=== PATIENT | female | born 1985 | race Two or more races ===

== ENCOUNTER 2019-11-21 19:02 | Inpatient (IN) | payer BC ==
[~2019-11-21] VITALS: Ht 149.9 cm; Wt 49.9 kg
[2019-11-21] MEDS ORDERED: ZOFRAN ODT8 MG ORAL (19:24)
[2019-11-21] MEDS ORDERED: AMOX TR-K CLV1 EAC2 ORAL (19:24)
[2019-11-21] MEDS ORDERED: TRAMADOL HCL50 MG ORAL (19:24)
[2019-11-21] MEDS ORDERED: OXYCODONE HCL5 M2 ORAL (19:25)
--- NOTE | 2019-11-21 19:25 | NUR ---
ED Nurse Note: Recieved pt from surgery center, pt had removal of uterine fibroids and here for uncontrolled post-op pain, pt states pain at 10/10, tp took oral oxycodone and states made her feel worse, pt denies cp, sob, or any other complaints or discomforts, pt is ambualtory, has patent dorado and saline lock to left ac area, assessed and intact and patent, pt immeidately palced on cardiac monitoring, will resume care as ordered and closely monitor.
[2019-11-21] MEDS ORDERED: Morphine Sulfate 4mg/ml Inj (IV USE ONLY) IVP ONE (19:30)
--- NOTE | 2019-11-21 19:31 | Emergency Room Report ---
History of Present Illness General Chief Complaint: Lower Back Pain or Injury Source: Patient Present Illness HPI Disclaimer: Please note that this report is being documented using [employer] technology. This can lead to erroneous entry secondary to incorrect interpretation by the dictating instrument. HPI: 34-year-old female history of uterine fibroids presents with postoperative pain. She had a uterine artery ablation this morning with Dr. Quinn. After surgery patient had persistent pain and was sent to the ER for pain control. She denies any fevers nausea or vomiting. Eyes any other medical history. Pain is in the lower abdomen radiating to the back approximately 8 out of 10. PMH: Uterine fibroids PSH: Reviewed Social Hx: Denies smoking drinking or illicit drug use Allergies: Coded Allergies: No Known Allergies (Unverified , 11/21/19) COVID-19 Screening Contact w/high risk pt: No Recent Travel to affected area: No Experienced COVID-19 symptoms?: No COVID-19 Testing performed BATTERY LOADER: No - tested on 11/09 COVID-19 Screening: Negative COVID-19 COVID-19 Testing Source: pre op Patient History Last Menstrual Period: 10/31/19 Now: No : 0 Para: 0 Reviewed Nursing Documentation: PMH: Agreed; PSxH: Agreed Nursing Documentation-PMH Past Medical History: No Stated History Review of Systems All Other Systems: negative except mentioned in HPI Physical Exam Vital Signs Date Time Temp Pulse Resp B/P (MAP) Pulse Ox O2 Delivery O2 Flow Rate FiO2 11/21/19 19:07 99.1 53 20 101/63 (76) 100 Room Air Sp02 EP Interpretation: reviewed, normal General Appearance: well appearing, no apparent distress Head: normocephalic, atraumatic Eyes: bilateral eye PERRL, bilateral eye EOMI ENT: hearing grossly normal, moist mucus membranes Neck: full range of motion, supple Respiratory: lungs clear, normal breath sounds, no rhonchi, no respiratory distress, no retraction, no wheezing Cardiovascular #1: normal peripheral pulses, regular rate, rhythm, no murmur Gastrointestinal: soft, non-distended, no guarding, tenderness - Lower abdominal tenderness without rebound or guarding Neurologic: alert, oriented x3, no focal defects Skin: normal color, warm/dry Medical Decision Making Diagnostic Impression: Primary Impression: Postoperative pain Additional Impression: Uterine fibroid ER Course MDM: Differential included postoperative pain, uterine fibroids, less likely infectious process Clinical course-IV already established at surgical center, IV fluids started, pain control given, basic laboratory studies are sent, will arrange for patient to be admitted to the medical floor for pain control and observation. On reevaluation: Pain controlled patient sleeping comfortably Plan-patient will be placed on observation on the medical floor Last Vital Signs Date Time Temp Pulse Resp B/P (MAP) Pulse Ox O2 Delivery O2 Flow Rate FiO2 11/21/19 19:07 99.1 53 20 101/63 (76) 100 Room Air Disposition: ADMITTED INPATIENT Condition: Serious Referrals: NOT CHOSEN IPA/,REFERRING (PCP) Foster Molina M.D. Nov 21, 2019 19:31
[2019-11-21 19:45] VITALS: BP 113/70
[2019-11-21] MEDS ORDERED: fentaNYL 100 mcg/2 mL IV ONE (20:30)
--- NOTE | 2019-11-21 21:00 | NUR ---
ED Nurse Note: Pt resting in bed, appears to be sleeping, arouses easily to verbal stimuli, when awakened pt continues to c/o severe pain and asking for meds, aware, new order recieved, will re-medicate as ordered and closely monitor, pt waiting for room for admission. V/S stable, no SOB or labored breathing, will also prepare for hospital admission.
[2019-11-21 22:00] VITALS: BP 108/66
--- NOTE | 2019-11-21 22:15 | NUR ---
ED Nurse Note: Pt has hospital room for admission, pt is awake, alert and oriented x 4, resting quietly but when asked states remains in severe pain, pt appears drowsy with eyes low, does appear to be sedated, report called to floor nurse Heather pt belonging list completed, med rec also, IV site patent, pt post-op site with no bleeding noted, all pulses are present, dorado to gravity with clear urine, pt being taken to floor via gurney with [facility], nad noted during pt transport.
[2019-11-21 22:26] LABS: APPEARANCE,URINE CLEAR; BILIRUBIN, URINE NEGATIVE (NEGATIVE); COLOR,URINE PALE YELLOW; GLUCOSE, URINE (UA) NEGATIVE (NEGATIVE); KETONES,URINE 4+ (NEGATIVE); LEUKOCYTE ESTERASE ,URINE NEGATIVE (NEGATIVE); NITRITE,URINE NEGATIVE (NEGATIVE); PH,URINE 7 (4.5-8.0); PROTEIN,URINE NEGATIVE (NEGATIVE); UROBILINOGEN,URINE NORMAL MG/DL (0.0-1.0)
[2019-11-21 22:28] LABS: HEMATOCRIT 34.9 % (37.0-47.0); HEMOGLOBIN 10.9 G/DL (12.0-16.0); MEAN CORPUSCULAR VOLUME 86 FL (80-99); PLATELET COUNT 251 K/UL (150-450); RED BLOOD COUNT 4.06 M/UL (4.20-5.40); RED CELL DISTRIBUTION WIDTH 13.6 % (11.6-14.8); WHITE BLOOD COUNT 10.2 K/UL (4.8-10.8)
[2019-11-21 22:30] LABS: BASOPHILS % (AUTO) 0.3 % (0.0-2.0); LYMPHOCYTES % (AUTO) 7.9 % (20.0-45.0); MONOCYTES % (AUTO) 1.4 % (1.0-10.0); NEUTROPHILS % (AUTO) 90.4 % (45.0-75.0)
[2019-11-21 22:50] LABS: ANION GAP 11 mmol/L (5-15); BLOOD UREA NITROGEN 5 mg/dL (7-18); CALCIUM 7.4 MG/DL (8.5-10.1); CARBON DIOXIDE 22 MMOL/L (21-32); CHLORIDE 104 MMOL/L (98-107); CREATININE 0.9 MG/DL (0.55-1.30); SODIUM 136 MMOL/L (136-145)
[2019-11-21 22:55] LABS: ALANINE AMINOTRANSFERASE 14 U/L (12-78); ALBUMIN 2.9 G/DL (3.4-5.0); ALBUMIN/GLOBULIN RATIO 0.9 (1.0-2.7); ALKALINE PHOSPHATASE 42 U/L (46-116); ASPARTATE AMINO TRANSFERASE 14 U/L (15-37); BILIRUBIN,TOTAL 0.6 MG/DL (0.2-1.0)
[2019-11-21] MEDS ORDERED: Potassium Chloride 20 MEQ in Dextrose 5%/Lactated Ringer's 1,000 ML IV SCH (23:15)
[2019-11-21] MEDS: Potassium Chloride 20 MEQ in Dextrose 5%/Lactated Ringer's 1,000 ML IV SCH (23:30)
[2019-11-22] VITALS: BP 98/77
[2019-11-22] MEDS ORDERED: Dextrose 5%/Lactated Ringer's 1,000 ML IV SCH (00:30)
[2019-11-22] MEDS ORDERED: LR 1000ml 1,000 ML ONE (00:30)
--- NOTE | 2019-11-22 00:33 | NUR ---
NURSES NOTE: PT received from ER at approx 2200. Pt is A/OX4, answers all questions appropriately. VS within normal limits. No outward s/s of distress noted. Breathing is even and unlabored on RA. L AC IV in tact, hep locked. Mustafa catheter in place, draining to gravity. Urine light yellow in color. No sediment noted. Head to toe assessment performed. Skin is clear and in tact. Dressing, R groin clean and dry. Pt will continue to be monitored.
[2019-11-22 04:00] VITALS: BP 100/57
[2019-11-22] MEDS ORDERED: ceFAZolin sod 1 GM in D5W 55 ML IVPB SCH (06:00)
--- NOTE | 2019-11-22 07:00 | NUR ---
NURSE NOTES: Received report from Domenica RN, rounds made pt awake a/ox4, breaths regular unlabored at RA, c/o pain 07/22, IVF on LT AC 22G patent asymptomatic, Mustafa catheter intact and anchored, dressing on R groin clean intact, bed in low locked position side rails up X 2, call light with in reach, will continue with plan of care
[2019-11-22 07:05] LABS: ALANINE AMINOTRANSFERASE 14 U/L (12-78); ALBUMIN/GLOBULIN RATIO 0.9 (1.0-2.7); ALKALINE PHOSPHATASE 41 U/L (46-116); ANION GAP 8 mmol/L (5-15); ASPARTATE AMINO TRANSFERASE 14 U/L (15-37); BILIRUBIN,TOTAL 0.7 MG/DL (0.2-1.0); BLOOD UREA NITROGEN 5 mg/dL (7-18); CALCIUM 8.1 MG/DL (8.5-10.1); CARBON DIOXIDE 24 MMOL/L (21-32); CHLORIDE 105 MMOL/L (98-107); CREATININE 0.9 MG/DL (0.55-1.30); SODIUM 137 MMOL/L (136-145)
[2019-11-22 07:10] LABS: BASOPHILS % (AUTO) 0.4 % (0.0-2.0); EOSINOPHILS % (AUTO) 0.1 % (0.0-3.0); HEMATOCRIT 35.4 % (37.0-47.0); HEMOGLOBIN 11.5 G/DL (12.0-16.0); MEAN CORPUSCULAR VOLUME 84 FL (80-99); MONOCYTES % (AUTO) 5.9 % (1.0-10.0); NEUTROPHILS % (AUTO) 81.7 % (45.0-75.0); PLATELET COUNT 239 K/UL (150-450); RED BLOOD COUNT 4.24 M/UL (4.20-5.40); RED CELL DISTRIBUTION WIDTH 11.7 % (11.6-14.8)
--- NOTE | 2019-11-22 07:30 | NUR ---
NURSES NOTE: During AM rounds, a red rash around pt's collar bone, across chest, bilateral breast spanning down to her top of abdomen was noted. Pt states she is experiencing pruritus. Oncoming nurse aware and will f/u with orders. Upon admission, a call was placed to Dr. Andrea for more admission orders; however, the request was declined and told pt will be seen in AM.
--- NOTE | 2019-11-22 07:35 | NUR ---
HAND OFF: Report given to VAUGHN More.
--- NOTE | 2019-11-22 07:40 | NUR ---
NURSE NOTES: pt complained of a redness around the neck and arms , on assessment pt has redness all around upper chest and around bilateral breast, and Bilateral upper extremities, notified Md, whom advise me to call back at 0900 am
--- NOTE | 2019-11-22 07:42 | History and Physical ---
Nelsy Mulligan CREW BOAT OPERATOR 11/22/19 0742: History of Present Illness General Date patient seen: Nov 22, 2019 Time patient seen: 06:30 Reason for Hospitalization: post op ab pain Present Illness HPI 34 years old female with past medical history of uterine fibroids, status post uterine artery embolization, no significant other medical history, presented with persistent abdominal pain, lower radiating to the back and rated as 8 out of 10 on a scale 1-10. Patient was sent for pain control. She denied fever or chills. She denied nausea and vomiting. Vital signs revealed bradycardia with heart rate in 50. No fevers. Laboratory work-up revealed no leukocytosis, hemoglobin 10.9, hematocrit 34.9 , platelet count 251. Stable electrolytes. Glucose 121. Stable LFT and lipase. Urinalysis revealed no evidence of urinary tract infection, +4 ketones. In emergency department patient received analgesic, antiemetic, started on IV fluids and admitted for further management. This am patient has mild leukocytosis, no fevers. She complains of pruritic rash, started last night in ED. Pain overall better controlled. Allergies: Coded Allergies: No Known Allergies (Unverified , 11/21/19) COVID-19 Screening Contact w/high risk pt: No Recent Travel to affected area: No Experienced COVID-19 symptoms?: No Medication History Scheduled Amoxicillin/Potassium Clav 875-125 Mg Tab* (Amox Tr-K Clv 875-125 Mg Tab*), 1 TAB ORAL EVERY 12 HOURS, (Reported) Scheduled PRN Ondansetron Odt* (Zofran Odt*), 4 MG ORAL Q6H PRN for Nausea & Vomiting, ( Reported) Oxycodone Hcl* (Oxycodone Hcl*), 5 MG ORAL Q4H PRN for For Pain, (Reported) Tramadol Hcl* (Ultram*), 50 MG ORAL Q4HR PRN for For Pain, (Reported) Patient History Healthcare decision maker Resuscitation status Advanced Directive on File Review of Systems Eye: Reports: no symptoms ENT: Reports: no symptoms Respiratory: Reports: no symptoms Cardiovascular: Reports: no symptoms Gastrointestinal: Reports: no symptoms Genitourinary: Reports: see HPI Musculoskeletal: Reports: no symptoms Skin: Reports: see HPI, rash Psychiatric: Reports: no symptoms Neurological: Reports: no symptoms Endocrine: Reports: no symptoms Hematologic/Lymphatic: Reports: no symptoms Physical Exam General Appearance: WD/WN, no apparent distress Lines, tubes and drains: peripheral HEENT: normocephalic, atraumatic, anicteric, mucous membranes moist, PERRL Neck: non-tender, normal alignment, supple Respiratory/Chest: lungs clear, normal breath sounds, no respiratory distress, no accessory muscle use Cardiovascular/Chest: normal rate Abdomen: normal bowel sounds, soft - mild tenderness lwoer abdomen, Extremities: normal range of motion, non-tender, no calf tenderness, normal capillary refill, no edema Neurologic: alert, oriented x 3, responsive Musculoskeletal: normal muscle bulk Last 24 Hour Vital Signs Date Time Temp Pulse Resp B/P (MAP) Pulse Ox O2 Delivery O2 Flow Rate FiO2 11/22/19 04:00 98.7 98 17 100/57 (71) 98 11/22/19 00:59 Room Air 11/22/19 00:00 98.2 77 16 98/77 (84) 97 11/21/19 22:00 98.8 72 16 108/66 (80) 100 11/21/19 22:00 99.1 72 16 108/66 100 Room Air 11/21/19 20:08 99.1 11/21/19 20:08 99.1 11/21/19 19:50 99.1 90 16 113/70 100 Room Air 11/21/19 19:45 99.1 90 16 113/70 100 Room Air 11/21/19 19:07 99.1 53 20 101/63 (76) 100 Room Air Intake and Output 11/21/19 11/22/19 19:00 07:00 Intake Total 150 ml Output Total 2400 ml Balance -2250 ml Intake Oral 150 ml Output Urine Total 2400 ml # Bowel Movements 1 Laboratory Tests Test 11/21/19 22:00 11/21/19 22:05 11/22/19 05:05 Urine Color Pale yellow Urine Appearance Clear Urine pH 7 (4.5-8.0) Urine Specific [place] 1.010 (1.005-1.035) Urine Protein Negative (NEGATIVE) Urine Glucose (UA) Negative (NEGATIVE) Urine Ketones 4+ (NEGATIVE) H Urine Blood 3+ (NEGATIVE) H Urine Nitrite Negative (NEGATIVE) Urine Bilirubin Negative (NEGATIVE) Urine Urobilinogen Normal MG/DL (0.0-1.0) Urine Leukocyte Esterase Negative (NEGATIVE) Urine RBC 5-10 /HPF (0 - 2) H Urine WBC 0-2 /HPF (0 - 2) Urine Squamous Epithelial Cells Occasional /LPF Urine Bacteria None /HPF (NONE) Urine HCG, Qualitative Negative (NEGATIVE) White Blood Count 10.2 K/UL (4.8-10.8) 12.0 K/UL (4.8-10.8) H Red Blood Count 4.06 M/UL (4.20-5.40) L 4.24 M/UL (4.20-5.40) Hemoglobin 10.9 G/DL (12.0-16.0) L 11.5 G/DL (12.0-16.0) L Hematocrit 34.9 % (37.0-47.0) L 35.4 % (37.0-47.0) L Mean Corpuscular Volume 86 FL (80-99) 84 FL (80-99) Mean Corpuscular Hemoglobin 26.8 PG (27.0-31.0) L 27.2 PG (27.0-31.0) Mean Corpuscular Hemoglobin Concent 31.1 G/DL (32.0-36.0) L 32.5 G/DL (32.0-36.0) Red Cell Distribution Width 13.6 % (11.6-14.8) 11.7 % (11.6-14.8) Platelet Count 251 K/UL (150-450) 239 K/UL (150-450) Mean Platelet Volume 7.6 FL (6.5-10.1) 8.0 FL (6.5-10.1) Neutrophils (%) (Auto) 90.4 % (45.0-75.0) H 81.7 % (45.0-75.0) H Lymphocytes (%) (Auto) 7.9 % (20.0-45.0) L 12.0 % (20.0-45.0) L Monocytes (%) (Auto) 1.4 % (1.0-10.0) 5.9 % (1.0-10.0) Eosinophils (%) (Auto) 0.0 % (0.0-3.0) 0.1 % (0.0-3.0) Basophils (%) (Auto) 0.3 % (0.0-2.0) 0.4 % (0.0-2.0) Sodium Level 136 MMOL/L (136-145) 137 MMOL/L (136-145) Potassium Level 4.0 MMOL/L (3.5-5.1) 4.0 MMOL/L (3.5-5.1) Chloride Level 104 MMOL/L (98-107) 105 MMOL/L (98-107) Carbon Dioxide Level 22 MMOL/L (21-32) 24 MMOL/L (21-32) Anion Gap 11 mmol/L (5-15) 8 mmol/L (5-15) Blood Urea Nitrogen 5 mg/dL (7-18) L 5 mg/dL (7-18) L Creatinine 0.9 MG/DL (0.55-1.30) 0.9 MG/DL (0.55-1.30) Estimat Glomerular Filtration Rate > 60 mL/min (>60) > 60 mL/min (>60) Glucose Level 121 MG/DL (74-106) H 157 MG/DL (74-106) H Calcium Level 7.4 MG/DL (8.5-10.1) L 8.1 MG/DL (8.5-10.1) L Total Bilirubin 0.6 MG/DL (0.2-1.0) 0.7 MG/DL (0.2-1.0) Aspartate Amino Transf (AST/SGOT) 14 U/L (15-37) L 14 U/L (15-37) L Alanine Aminotransferase (ALT/SGPT) 14 U/L (12-78) 14 U/L (12-78) Alkaline Phosphatase 42 U/L (46-116) L 41 U/L (46-116) L Total Protein 6.0 G/DL (6.4-8.2) L 6.4 G/DL (6.4-8.2) Albumin 2.9 G/DL (3.4-5.0) L 3.0 G/DL (3.4-5.0) L Globulin 3.1 g/dL 3.4 g/dL Albumin/Globulin Ratio 0.9 (1.0-2.7) L 0.9 (1.0-2.7) L Lipase 68 U/L (73-393) L Height (Feet): 4 Height (Inches): 11.00 Weight (Pounds): 110 Medications Current Medications Medications (Trade) Dose Ordered Sig/Albert Route PRN Reason Start Time Stop Time Status Last Admin Dose Admin Cefazolin Sodium 1 gm/Dextrose 55 ml @ 110 mls/hr Q8HR IVPB 11/22/19 06:00 11/29/19 05:59 11/22/19 06:13 Hydromorphone HCl (Dilaudid) 1 mg Q6H PRN IVP FOR MILD PAIN (1-3) 11/22/19 00:30 11/29/19 00:29 Hydromorphone HCl (Dilaudid) 2 mg Q2H PRN IVP SEVERE PAIN (7-10) 11/21/19 23:15 11/28/19 23:14 11/21/19 23:55 Hydromorphone HCl (Dilaudid) 2 mg Q3H PRN IVP MODERATE PAIN (4-6) 11/22/19 00:30 11/29/19 00:29 Ondansetron HCl (Zofran) 4 mg Q6H PRN IVP Nausea & Vomiting 11/21/19 23:15 12/21/19 23:14 Potassium Chloride 20 meq/ Dextrose/Lactated Ringer's 1,010 ml @ 150 mls/hr Q6H44M IV 11/21/19 23:30 12/21/19 23:29 11/21/19 23:30 Assessment/Plan Assessment/Plan: ASSESSMENT Postoperative pain s/p uterine artery embolization Uterine fibroids Leukocytosis Pruritic rash Anemia Bradycardia - asymptomatic. resolved PLAN OF CARE MS floor IVF empiric abx -Cefazolin, will dc abx due to rash -possible adverse effect pain management a/emetic prn [id number] added for pruritis monitor rash, maybe adverse effect from Dilaudid as well, if symptomatic consider change Dilaudid to Morphine monitor HH with goal to keep Hgb above 7 bowel regimen OOB and ambulate as tolerated supportive care case discussed and evaluated by supervising physician Michel Mccullough MD 11/22/19 2188: History of Present Illness General Reason for Hospitalization: post op ab pain Present Illness Allergies: Coded Allergies: No Known Allergies (Unverified , 11/21/19) Medication History Scheduled Amoxicillin/Potassium Clav 875-125 Mg Tab* (Amox Tr-K Clv 875-125 Mg Tab*), 1 TAB ORAL EVERY 12 HOURS, (Reported) Scheduled PRN Ondansetron Odt* (Zofran Odt*), 4 MG ORAL Q6H PRN for Nausea & Vomiting, ( Reported) Oxycodone Hcl* (Oxycodone Hcl*), 5 MG ORAL Q4H PRN for For Pain, (Reported) Tramadol Hcl* (Ultram*), 50 MG ORAL Q4HR PRN for For Pain, (Reported) Assessment/Plan Assessment/Plan: Patient seen and examined with CREW BOAT OPERATOR. Agree with above A&P as it reflects our joint deliberations. Nelsy Mulligan NP Nov 22, 2019 07:42 Michel Mccullough MD Nov 22, 2019 16:25
[2019-11-22 08:22] VITALS: BP 96/52
[2019-11-22] MEDS: DiphenhydrAMINE 50mg/ml Inj IVP PRN ×2 (10:15→18:07)
[2019-11-22] MEDS: HYDROmorphone 1mg/ml Carpuject IVP PRN ×2 (10:15→19:45)
--- NOTE | 2019-11-22 10:46 | General Surgery Progress Note ---
General Surgery-Progress Note Subjective Day of Surgery: november 20 Procedure Performed uterine fibroid embolization Symptoms: improved, voiding well, pain decreased Objective Last 24 Hour Vital Signs Date Time Temp Pulse Resp B/P (MAP) Pulse Ox O2 Delivery O2 Flow Rate FiO2 11/22/19 08:22 98.4 56 21 96/52 (67) 97 11/22/19 04:00 98.7 98 17 100/57 (71) 98 11/22/19 00:59 Room Air 11/22/19 00:00 98.2 77 16 98/77 (84) 97 11/21/19 22:00 98.8 72 16 108/66 (80) 100 11/21/19 22:00 99.1 72 16 108/66 100 Room Air 11/21/19 20:08 99.1 11/21/19 20:08 99.1 11/21/19 19:50 99.1 90 16 113/70 100 Room Air 11/21/19 19:45 99.1 90 16 113/70 100 Room Air 11/21/19 19:07 99.1 53 20 101/63 (76) 100 Room Air I&O Intake and Output 11/21/19 11/22/19 19:00 07:00 Intake Total 150 ml Output Total 2400 ml Balance -2250 ml Intake Oral 150 ml Output Urine Total 2400 ml # Bowel Movements 1 Dressing: dry Wound: clean Drains: none Cardiovascular: RSR Respiratory: clear Abdomen: soft, flat, tenderness, present bowel sounds Extremities: no edema, no tenderness, no cyanosis Laboratory Tests Test 11/21/19 22:00 11/21/19 22:05 11/22/19 05:05 Urine Color Pale yellow Urine Appearance Clear Urine pH 7 (4.5-8.0) Urine Specific [place] 1.010 (1.005-1.035) Urine Protein Negative (NEGATIVE) Urine Glucose (UA) Negative (NEGATIVE) Urine Ketones 4+ (NEGATIVE) H Urine Blood 3+ (NEGATIVE) H Urine Nitrite Negative (NEGATIVE) Urine Bilirubin Negative (NEGATIVE) Urine Urobilinogen Normal MG/DL (0.0-1.0) Urine Leukocyte Esterase Negative (NEGATIVE) Urine RBC 5-10 /HPF (0 - 2) H Urine WBC 0-2 /HPF (0 - 2) Urine Squamous Epithelial Cells Occasional /LPF Urine Bacteria None /HPF (NONE) Urine HCG, Qualitative Negative (NEGATIVE) White Blood Count 10.2 K/UL (4.8-10.8) 12.0 K/UL (4.8-10.8) H Red Blood Count 4.06 M/UL (4.20-5.40) L 4.24 M/UL (4.20-5.40) Hemoglobin 10.9 G/DL (12.0-16.0) L 11.5 G/DL (12.0-16.0) L Hematocrit 34.9 % (37.0-47.0) L 35.4 % (37.0-47.0) L Mean Corpuscular Volume 86 FL (80-99) 84 FL (80-99) Mean Corpuscular Hemoglobin 26.8 PG (27.0-31.0) L 27.2 PG (27.0-31.0) Mean Corpuscular Hemoglobin Concent 31.1 G/DL (32.0-36.0) L 32.5 G/DL (32.0-36.0) Red Cell Distribution Width 13.6 % (11.6-14.8) 11.7 % (11.6-14.8) Platelet Count 251 K/UL (150-450) 239 K/UL (150-450) Mean Platelet Volume 7.6 FL (6.5-10.1) 8.0 FL (6.5-10.1) Neutrophils (%) (Auto) 90.4 % (45.0-75.0) H 81.7 % (45.0-75.0) H Lymphocytes (%) (Auto) 7.9 % (20.0-45.0) L 12.0 % (20.0-45.0) L Monocytes (%) (Auto) 1.4 % (1.0-10.0) 5.9 % (1.0-10.0) Eosinophils (%) (Auto) 0.0 % (0.0-3.0) 0.1 % (0.0-3.0) Basophils (%) (Auto) 0.3 % (0.0-2.0) 0.4 % (0.0-2.0) Sodium Level 136 MMOL/L (136-145) 137 MMOL/L (136-145) Potassium Level 4.0 MMOL/L (3.5-5.1) 4.0 MMOL/L (3.5-5.1) Chloride Level 104 MMOL/L (98-107) 105 MMOL/L (98-107) Carbon Dioxide Level 22 MMOL/L (21-32) 24 MMOL/L (21-32) Anion Gap 11 mmol/L (5-15) 8 mmol/L (5-15) Blood Urea Nitrogen 5 mg/dL (7-18) L 5 mg/dL (7-18) L Creatinine 0.9 MG/DL (0.55-1.30) 0.9 MG/DL (0.55-1.30) Estimat Glomerular Filtration Rate > 60 mL/min (>60) > 60 mL/min (>60) Glucose Level 121 MG/DL (74-106) H 157 MG/DL (74-106) H Calcium Level 7.4 MG/DL (8.5-10.1) L 8.1 MG/DL (8.5-10.1) L Total Bilirubin 0.6 MG/DL (0.2-1.0) 0.7 MG/DL (0.2-1.0) Aspartate Amino Transf (AST/SGOT) 14 U/L (15-37) L 14 U/L (15-37) L Alanine Aminotransferase (ALT/SGPT) 14 U/L (12-78) 14 U/L (12-78) Alkaline Phosphatase 42 U/L (46-116) L 41 U/L (46-116) L Total Protein 6.0 G/DL (6.4-8.2) L 6.4 G/DL (6.4-8.2) Albumin 2.9 G/DL (3.4-5.0) L 3.0 G/DL (3.4-5.0) L Globulin 3.1 g/dL 3.4 g/dL Albumin/Globulin Ratio 0.9 (1.0-2.7) L 0.9 (1.0-2.7) L Lipase 68 U/L (73-393) L Additional Comments post embolization pain, now under control Plan Additional Comments continue current management Dalton Quinn MD Nov 22, 2019 10:46
[2019-11-22] MEDS: Potassium Chloride 20 MEQ in Dextrose 5%/Lactated Ringer's 1,000 ML IV SCH ×4 (11:41→22:12)
[2019-11-22 12:00] VITALS: BP 94/63
--- NOTE | 2019-11-22 12:02 | NUR ---
CASE MANAGEMENT: INITIAL REVIEW 34YR OLD FEMALE WHEELCHAIRED IN TO ER FROM HOME CC: SHARP FLANK PAIN; UTERINE ARTERY EMBOLIZATION SI:POST OPERATIVE PAIN . S/P UTERINE FIBROID EMBOLIZATION 99.1 53 20 101/63 100% ON RA BG 121 CA+ 7.4 ALKP 42 ALBUMIN 2.9 IS:IVF NS BOLUS X1 IV MORPHINE SULFATE X1 \: 3E MED SURG UNIT DCP: HOME WHEN STABLE PLAN: CONTROL PAIN CASE MANAGEMENT: REVIEW 11/22/19 SI:POST OPERATIVE PAIN . S/P UTERINE FIBROID EMBOLIZATION 98.4 56 21 96/52 97% ON RA BG 121 CA+ 7.4 ALKP 42 ALBUMIN 2.9 IS:IV KCL/D5/LR @150ML/HR IV DILAUDID Q6HR/PRN IV BENADRYL Q3HR/PRN \: 3E MED SURG UNIT DCP: HOME WHEN STABLE PLAN: CONTROL PAIN START ON IV VENOFER DC BESS
[2019-11-22] MEDS ORDERED: Iron Sucrose 200 MG in NS 110 ML IV ONE (14:00)
--- NOTE | 2019-11-22 14:33 | NUR ---
*-* INSURANCE *-* ALL CLINICALS AND REVIEWS HAVE BEEN FAXED TO: [facility] [facility] AUTH#[id number] [phone] F:[phone]
[2019-11-22] MEDS ORDERED: Bisacodyl EC 5mg tab ORAL PRN (16:30)
[2019-11-22 16:32] VITALS: BP 114/70
[2019-11-22] MEDS: Docusate 100mg cap ORAL SCH (18:06)
[2019-11-22 20:00] VITALS: BP 99/61
--- NOTE | 2019-11-22 20:15 | NUR ---
NURSES NOTE: Pt in bed, complains of pain 4/10 in lower abdominal area. 1mg Dilaudid administered IV push. Effective, tolerated well. No outward s/s of distress noted. Breathing is even on RA. Mustafa removed. IV RAC in tact, no s/s of infection. All due meds will be given. Bed at lowest level, call light within reach. Pt will be monitored.
--- NOTE | 2019-11-22 20:21 | NUR ---
HAND-OFF: Report given to Heather MENDES , pt stable.
[2019-11-23] VITALS: BP 91/58
[2019-11-23 04:00] VITALS: BP 99/76
[2019-11-23 05:59] LABS: BASOPHILS % (AUTO) 0.7 % (0.0-2.0); EOSINOPHILS % (AUTO) 3.7 % (0.0-3.0); HEMATOCRIT 37.8 % (37.0-47.0); HEMOGLOBIN 11.9 G/DL (12.0-16.0); LYMPHOCYTES % (AUTO) 13.1 % (20.0-45.0); MEAN CORPUSCULAR VOLUME 85 FL (80-99); MONOCYTES % (AUTO) 5.4 % (1.0-10.0); NEUTROPHILS % (AUTO) 77.1 % (45.0-75.0); PLATELET COUNT 226 K/UL (150-450); RED BLOOD COUNT 4.48 M/UL (4.20-5.40); RED CELL DISTRIBUTION WIDTH 11.9 % (11.6-14.8); WHITE BLOOD COUNT 10.4 K/UL (4.8-10.8)
[2019-11-23 06:11] LABS: ALANINE AMINOTRANSFERASE 12 U/L (12-78); ALBUMIN/GLOBULIN RATIO 0.9 (1.0-2.7); ALKALINE PHOSPHATASE 40 U/L (46-116); ANION GAP 7 mmol/L (5-15); ASPARTATE AMINO TRANSFERASE 15 U/L (15-37); BILIRUBIN,TOTAL 0.6 MG/DL (0.2-1.0); BLOOD UREA NITROGEN 3 mg/dL (7-18); CALCIUM 8.1 MG/DL (8.5-10.1); CARBON DIOXIDE 26 MMOL/L (21-32); CHLORIDE 103 MMOL/L (98-107); CREATININE 0.9 MG/DL (0.55-1.30); POTASSIUM 3.9 MMOL/L (3.5-5.1); SODIUM 136 MMOL/L (136-145)
[2019-11-23] MEDS: Potassium Chloride 20 MEQ in Dextrose 5%/Lactated Ringer's 1,000 ML IV SCH ×3 (06:16→22:11)
[2019-11-23] MEDS: HYDROmorphone 1mg/ml Carpuject IVP PRN (06:22)
[2019-11-23] MEDS: DiphenhydrAMINE 50mg/ml Inj IVP PRN (06:31)
--- NOTE | 2019-11-23 07:40 | NUR ---
HAND OFF: Report given to VAUGHN Austin.
--- NOTE | 2019-11-23 08:00 | NUR ---
NURSE NOTES: Received report from Domenica MENDES, rounds made pt awake a/ox4, breaths regular unlabored at RA, denies pain at this time, IVF on LT AC 22G patent asymptomatic, dressing on R groin clean intact, bed in low locked position side rails up X 2, call light with in reach, will continue with plan of care
--- NOTE | 2019-11-23 08:13 | Pulmonology Progress Note ---
Nelsy Mulligan CONSERVATION AGENT 11/23/19 0813: Subjective Allergies: Coded Allergies: No Known Allergies (Unverified , 11/21/19) Subjective Mild leukocytosis resolved Feeling better Rash now on upper back as well Objective Last 24 Hour Vital Signs Date Time Temp Pulse Resp B/P (MAP) Pulse Ox O2 Delivery O2 Flow Rate FiO2 11/23/19 04:00 99.5 72 19 99/76 (84) 94 11/23/19 00:00 99.3 63 19 91/58 (69) 99 11/22/19 21:00 Room Air 11/22/19 20:00 98.5 80 20 99/61 (74) 99 11/22/19 16:32 98.8 69 20 114/70 (85) 97 11/22/19 12:00 98.4 72 19 94/63 (73) 95 11/22/19 09:00 Room Air 11/22/19 08:22 98.4 56 21 96/52 (67) 97 Intake and Output 11/22/19 11/23/19 19:00 07:00 Intake Total 480 ml Balance 480 ml Intake Oral 480 ml # Voids 3 4 # Bowel Movements 1 Objective General Appearance: WD/WN, no apparent distress Lines, tubes and drains: peripheral HEENT: normocephalic, atraumatic, anicteric, mucous membranes moist, PERRL Neck: non-tender, normal alignment, supple Respiratory/Chest: lungs clear, normal breath sounds, no respiratory distress, no accessory muscle use Cardiovascular/Chest: normal rate Abdomen: normal bowel sounds, soft - mild tenderness lwoer abdomen, Extremities: normal range of motion, non-tender, no calf tenderness, normal capillary refill, no edema Neurologic: alert, oriented x 3, responsive Musculoskeletal: normal muscle bulk SKIN: maculopapular rash upper chest and upper back Laboratory Tests 11/23/19 05:00: White Blood Count 10.4, Red Blood Count 4.48, Hemoglobin 11.9L, Hematocrit 37.8 , Mean Corpuscular Volume 85, Mean Corpuscular Hemoglobin 26.6L, Mean Corpuscular Hemoglobin Concent 31.4L, Red Cell Distribution Width 11.9, Platelet Count 226, Mean Platelet Volume 8.0, Neutrophils (%) (Auto) 77.1H, Lymphocytes (%) (Auto) 13.1L, Monocytes (%) (Auto) 5.4, Eosinophils (%) (Auto) 3.7H, Basophils (%) (Auto) 0.7, Sodium Level 136, Potassium Level 3.9, Chloride Level 103, Carbon Dioxide Level 26, Anion Gap 7, Blood Urea Nitrogen 3L, Creatinine 0.9, Estimat Glomerular Filtration Rate > 60, Glucose Level 126H, Calcium Level 8.1L, Total Bilirubin 0.6, Aspartate Amino Transf (AST/SGOT) 15, Alanine Aminotransferase (ALT/SGPT) 12, Alkaline Phosphatase 40L, Total Protein 6.3L, Albumin 3.0L, Globulin 3.3, Albumin/Globulin Ratio 0.9L Current Medications Medications (Trade) Dose Ordered Sig/Albert Route PRN Reason Start Time Stop Time Status Last Admin Dose Admin Bisacodyl (Dulcolax) 5 mg DAILYPRN PRN ORAL Constipation 11/22/19 16:30 02/20/20 16:29 Bisacodyl (Dulcolax) 10 mg DAILYPRN PRN RECTAL Constipation 11/22/19 16:30 02/20/20 16:29 Diphenhydramine HCl (Benadryl) 25 mg Q3H PRN IVP Itching 11/22/19 10:00 12/22/19 09:59 11/23/19 06:31 Docusate Sodium (Colace) 100 mg TWICE A DAY ORAL 11/22/19 18:00 12/22/19 17:59 11/22/19 18:06 Hydromorphone HCl (Dilaudid) 1 mg Q6H PRN IVP FOR MILD PAIN (1-3) 11/22/19 00:30 11/29/19 00:29 11/23/19 06:22 Hydromorphone HCl (Dilaudid) 2 mg Q2H PRN IVP SEVERE PAIN (7-10) 11/21/19 23:15 11/28/19 23:14 11/21/19 23:55 Hydromorphone HCl (Dilaudid) 2 mg Q3H PRN IVP MODERATE PAIN (4-6) 11/22/19 00:30 11/29/19 00:29 11/23/19 01:53 Ondansetron HCl (Zofran) 4 mg Q6H PRN IVP Nausea & Vomiting 11/21/19 23:15 12/21/19 23:14 Potassium Chloride 20 meq/ Dextrose/Lactated Ringer's 1,010 ml @ 150 mls/hr Q6H44M IV 11/22/19 18:00 12/22/19 17:59 11/23/19 06:16 Assessment/Plan Assessment/Plan ASSESSMENT Postoperative pain s/p uterine artery embolization Uterine fibroids Leukocytosis Pruritic rash Anemia Bradycardia - asymptomatic. resolved PLAN OF CARE [facility] floor IVF initially empiric abx -Cefazolin, abx stopped due to rash -possible adverse effect mild leukocytosis resolved pain management a/emetic prn Benadryl added for pruritis advance diet to soft as tolerated rash persist, now on back as well, will dc Dilaudid and contact surgeon if want to switch to oral analgesics possibly adverse effect from Dilaudid as well, monitor HH with goal to keep Hgb above 7 bowel regimen OOB and ambulate as tolerated supportive care case discussed and evaluated by supervising physician Michel Mccullough MD 11/23/19 1553: Subjective Allergies: Coded Allergies: No Known Allergies (Unverified , 11/21/19) Assessment/Plan Assessment/Plan Patient seen and examined with CONSERVATION AGENT. Agree with above A&P as it reflects our joint deliberations. Transition to oral pain meds. More aggressive bowel regimen. PO as tolerated. Nelsy Mulligan NP Nov 23, 2019 08:13 Michel Mccullough MD Nov 23, 2019 15:53
[2019-11-23] MEDS: Docusate 100mg cap ORAL SCH ×2 (08:59→16:59)
[2019-11-23] MEDS: Morphine Sulfate 4mg/ml Inj (IV USE ONLY) IVP PRN ×3 (10:01→17:40)
[2019-11-23 12:00] VITALS: BP 115/84
[2019-11-23] MEDS ORDERED: Lactulose 20gm/30ml UDC ORAL SCH (12:15)
--- NOTE | 2019-11-23 14:37 | General Surgery Progress Note ---
General Surgery-Progress Note Subjective Procedure Performed uterine fibroid embolization Symptoms: improved, tolerating diet, voiding well, passing flatus Objective Last 24 Hour Vital Signs Date Time Temp Pulse Resp B/P (MAP) Pulse Ox O2 Delivery O2 Flow Rate FiO2 11/23/19 12:00 98.3 78 20 115/84 (94) 99 11/23/19 09:00 Room Air 11/23/19 04:00 99.5 72 19 99/76 (84) 94 11/23/19 00:00 99.3 63 19 91/58 (69) 99 11/22/19 21:00 Room Air 11/22/19 20:00 98.5 80 20 99/61 (74) 99 11/22/19 16:32 98.8 69 20 114/70 (85) 97 I&O Intake and Output 11/22/19 11/23/19 19:00 07:00 Intake Total 480 ml Balance 480 ml Intake Oral 480 ml # Voids 3 4 # Bowel Movements 1 Dressing: dry Wound: clean Drains: none Cardiovascular: RSR Respiratory: clear Abdomen: soft, flat, scaphoid, tenderness, present bowel sounds Extremities: no edema, no tenderness, no cyanosis Laboratory Tests Test 11/23/19 05:00 White Blood Count 10.4 K/UL (4.8-10.8) Red Blood Count 4.48 M/UL (4.20-5.40) Hemoglobin 11.9 G/DL (12.0-16.0) L Hematocrit 37.8 % (37.0-47.0) Mean Corpuscular Volume 85 FL (80-99) Mean Corpuscular Hemoglobin 26.6 PG (27.0-31.0) L Mean Corpuscular Hemoglobin Concent 31.4 G/DL (32.0-36.0) L Red Cell Distribution Width 11.9 % (11.6-14.8) Platelet Count 226 K/UL (150-450) Mean Platelet Volume 8.0 FL (6.5-10.1) Neutrophils (%) (Auto) 77.1 % (45.0-75.0) H Lymphocytes (%) (Auto) 13.1 % (20.0-45.0) L Monocytes (%) (Auto) 5.4 % (1.0-10.0) Eosinophils (%) (Auto) 3.7 % (0.0-3.0) H Basophils (%) (Auto) 0.7 % (0.0-2.0) Sodium Level 136 MMOL/L (136-145) Potassium Level 3.9 MMOL/L (3.5-5.1) Chloride Level 103 MMOL/L (98-107) Carbon Dioxide Level 26 MMOL/L (21-32) Anion Gap 7 mmol/L (5-15) Blood Urea Nitrogen 3 mg/dL (7-18) L Creatinine 0.9 MG/DL (0.55-1.30) Estimat Glomerular Filtration Rate > 60 mL/min (>60) Glucose Level 126 MG/DL (74-106) H Calcium Level 8.1 MG/DL (8.5-10.1) L Total Bilirubin 0.6 MG/DL (0.2-1.0) Aspartate Amino Transf (AST/SGOT) 15 U/L (15-37) Alanine Aminotransferase (ALT/SGPT) 12 U/L (12-78) Alkaline Phosphatase 40 U/L (46-116) L Total Protein 6.3 G/DL (6.4-8.2) L Albumin 3.0 G/DL (3.4-5.0) L Globulin 3.3 g/dL Albumin/Globulin Ratio 0.9 (1.0-2.7) L Plan Additional Comments attempt oral meds for analgesia. ambulate, soft diet. stop dilaudid, antibiotics. Dalton Quinn MD Nov 23, 2019 14:37
[2019-11-23] MEDS ORDERED: Lactulose 20gm/30ml UDC ORAL PRN (15:52)
[2019-11-23 16:00] VITALS: BP 104/54
--- NOTE | 2019-11-23 19:15 | NUR ---
NURSE NOTES: Received report from VAUGHN More. Pt is awake, lying semi-crowley's; comfortably resting. No signs of acute distress noted. Pt denies any pain at this time. AOx4; able to make needs known. Checked IV site, line and rate; patent and running. No erythema, bleeding, or infiltration noted. Bed at lowest position. Brakes on. Siderails up x3. Call light within reach. Will continue to monitor.
--- NOTE | 2019-11-23 19:53 | NUR ---
HAND-OFF: Report given to Iwona MENDES, pt stable.
[2019-11-23 20:00] VITALS: BP 109/69
[2019-11-23 23:45] VITALS: BP 93/65
[2019-11-24 04:00] VITALS: BP 104/69
--- NOTE | 2019-11-24 07:21 | NUR ---
HAND-OFF: Report given to VAUGHN Mcghee. Pt is awake and in stable condition. Plan of care endorsed.
--- NOTE | 2019-11-24 07:30 | NUR ---
NURSE NOTES: Received report from Iwona MENDES. Patient is asleep during rounds, in no apparent distress, RR even and unlabored, IVF running per order. Side rails upx2, bed low and locked, call light within reach.
[2019-11-24 08:00] VITALS: BP 98/59
--- NOTE | 2019-11-24 08:03 | Pulmonology Progress Note ---
Nelsy Mulligan EDUCATIONAL TECHNOLOGY COORDINATOR 11/24/19 0803: Subjective Allergies: Coded Allergies: No Known Allergies (Unverified , 11/21/19) Subjective fever 101.2 this am and WBC 14 rash resolved pain controlled with oral analgesics Objective Last 24 Hour Vital Signs Date Time Temp Pulse Resp B/P (MAP) Pulse Ox O2 Delivery O2 Flow Rate FiO2 11/24/19 04:00 97.5 89 18 104/69 (81) 100 11/23/19 23:45 97.9 77 20 93/65 (74) 96 11/23/19 21:00 Room Air 11/23/19 20:00 98.5 77 20 109/69 (82) 100 11/23/19 16:00 97.5 71 18 104/54 (71) 99 11/23/19 12:00 98.3 78 20 115/84 (94) 99 11/23/19 09:00 Room Air Intake and Output 11/23/19 11/24/19 19:00 07:00 Intake Total 520 ml 500 ml Balance 520 ml 500 ml Intake Oral 520 ml 500 ml # Voids 5 3 Objective General Appearance: WD/WN, no apparent distress Lines, tubes and drains: peripheral HEENT: normocephalic, atraumatic, anicteric, mucous membranes moist, PERRL Neck: non-tender, normal alignment, supple Respiratory/Chest: lungs clear, normal breath sounds, no respiratory distress, no accessory muscle use Cardiovascular/Chest: normal rate Abdomen: normal bowel sounds, soft - mild tenderness lwoer abdomen, Extremities: normal range of motion, non-tender, no calf tenderness, normal capillary refill, no edema Neurologic: alert, oriented x 3, responsive Musculoskeletal: normal muscle bulk SKIN: maculopapular rash upper chest and upper back Current Medications Medications (Trade) Dose Ordered Sig/Albert Route PRN Reason Start Time Stop Time Status Last Admin Dose Admin Bisacodyl (Dulcolax) 5 mg DAILYPRN PRN ORAL Constipation 11/22/19 16:30 02/20/20 16:29 11/23/19 16:59 Bisacodyl (Dulcolax) 10 mg DAILYPRN PRN RECTAL Constipation 11/22/19 16:30 02/20/20 16:29 Diphenhydramine HCl (Benadryl) 25 mg Q3H PRN IVP Itching 11/22/19 10:00 12/22/19 09:59 11/23/19 06:31 Docusate Sodium (Colace) 100 mg TWICE A DAY ORAL 11/22/19 18:00 12/22/19 17:59 11/23/19 16:59 Lactulose (Cephulac) 30 gm TIDPRN PRN ORAL CONSTIPATION 11/23/19 15:52 12/23/19 15:51 Morphine Sulfate (Morphine Sulfate) 4 mg Q4H PRN IVP breakthrough pain 11/23/19 09:45 11/30/19 09:44 11/23/19 17:40 Ondansetron HCl (Zofran) 4 mg Q6H PRN IVP Nausea & Vomiting 11/21/19 23:15 12/21/19 23:14 Oxycodone/ Acetaminophen (Percocet 10/325) 1 tab Q3H PRN ORAL severe pain 11/23/19 09:45 11/30/19 09:44 11/24/19 06:50 Potassium Chloride 20 meq/ Dextrose/Lactated Ringer's 1,010 ml @ 100 mls/hr Q10H6M IV 11/23/19 12:00 12/23/19 11:59 11/23/19 22:11 Assessment/Plan Assessment/Plan ASSESSMENT Postoperative pain s/p uterine artery embolization Uterine fibroids Leukocytosis Pruritic rash Anemia Bradycardia - asymptomatic. resolved PLAN OF CARE [facility] floor IVF initially empiric abx -Cefazolin, abx stopped due to rash -possible adverse effect mild leukocytosis resolved ,this am WBC 14 and fever 101.2 start Augmentin antipyretic prn IS the bedside and encourage to use OOB as tolerated pain management, toelrates po Dilaudid prior dc due to possible adverse effect due to rash no further rash a/emetic prn Benadryl added for pruritis prn advance diet to soft , bowel regimen, had BM voiding w/out difficulties supportive care add 20 KL po ( has in IVF as well) case discussed and evaluated by supervising physician Michel Mccullough MD 11/24/19 1342: Subjective Allergies: Coded Allergies: No Known Allergies (Unverified , 11/21/19) Assessment/Plan Assessment/Plan Patient seen and examined with EDUCATIONAL TECHNOLOGY COORDINATOR. Agree with above A&P as it reflects our joint deliberations. Nelsy Mulligan NP Nov 24, 2019 08:03 Michel Mccullough MD Nov 24, 2019 13:42
--- NOTE | 2019-11-24 08:20 | NUR ---
NURSE NOTES: Called and left voicemail with lalito Kimbrough MD of patient's fever of 101.2. Awaiting callback.
--- NOTE | 2019-11-24 08:30 | NUR ---
NURSE NOTES: Received callback from Dr. Mccullough. aware of patient's fever. Tylenol order received, read back and entered. Will carry out.
--- NOTE | 2019-11-24 08:36 | NUR ---
NURSE NOTES: Received order from Deric Mulligan CHROME TANNER to advance patient's diet to soft diet and encourage IS. Orders read back and entered.
[2019-11-24 08:50] LABS: BASOPHILS % (AUTO) 0.4 % (0.0-2.0); EOSINOPHILS % (AUTO) 2.9 % (0.0-3.0); HEMATOCRIT 41.1 % (37.0-47.0); HEMOGLOBIN 12.6 G/DL (12.0-16.0); LYMPHOCYTES % (AUTO) 11.1 % (20.0-45.0); MEAN CORPUSCULAR VOLUME 88 FL (80-99); MONOCYTES % (AUTO) 4.9 % (1.0-10.0); NEUTROPHILS % (AUTO) 80.7 % (45.0-75.0); PLATELET COUNT 278 K/UL (150-450); RED BLOOD COUNT 4.69 M/UL (4.20-5.40); RED CELL DISTRIBUTION WIDTH 13.5 % (11.6-14.8)
[2019-11-24] MEDS: Docusate 100mg cap ORAL SCH ×2 (08:59→17:35)
[2019-11-24] MEDS: Potassium Chloride 20 MEQ in Dextrose 5%/Lactated Ringer's 1,000 ML IV SCH ×2 (09:00→17:35)
[2019-11-24 09:11] LABS: ALANINE AMINOTRANSFERASE 19 U/L (12-78); ALBUMIN 3.3 G/DL (3.4-5.0); ALBUMIN/GLOBULIN RATIO 0.9 (1.0-2.7); ALKALINE PHOSPHATASE 52 U/L (46-116); ANION GAP 9 mmol/L (5-15); ASPARTATE AMINO TRANSFERASE 21 U/L (15-37); BLOOD UREA NITROGEN 2 mg/dL (7-18); CALCIUM 8.5 MG/DL (8.5-10.1); CARBON DIOXIDE 28 MMOL/L (21-32); CHLORIDE 98 MMOL/L (98-107); CREATININE 0.9 MG/DL (0.55-1.30); POTASSIUM 3.4 MMOL/L (3.5-5.1); SODIUM 135 MMOL/L (136-145)
[2019-11-24] MEDS: Augmentin 875mg Tab ORAL SCH ×2 (10:44→20:42)
[2019-11-24 12:00] VITALS: BP 98/61
--- NOTE | 2019-11-24 15:12 | General Surgery Progress Note ---
General Surgery-Progress Note Subjective Procedure Performed uterine fibroid embolization Symptoms: pain decreased Objective Last 24 Hour Vital Signs Date Time Temp Pulse Resp B/P (MAP) Pulse Ox O2 Delivery O2 Flow Rate FiO2 11/24/19 10:00 98.5 11/24/19 08:00 101.2 99 18 98/59 (72) 97 11/24/19 04:00 97.5 89 18 104/69 (81) 100 11/23/19 23:45 97.9 77 20 93/65 (74) 96 11/23/19 21:00 Room Air 11/23/19 20:00 98.5 77 20 109/69 (82) 100 11/23/19 16:00 97.5 71 18 104/54 (71) 99 I&O Intake and Output 11/23/19 11/24/19 19:00 07:00 Intake Total 520 ml 500 ml Balance 520 ml 500 ml Intake Oral 520 ml 500 ml # Voids 5 3 Dressing: dry Wound: clean Drains: none Cardiovascular: RSR Respiratory: clear Abdomen: non-tender, present bowel sounds Extremities: no edema, no tenderness, no cyanosis Laboratory Tests Test 11/24/19 06:42 White Blood Count 14.0 K/UL (4.8-10.8) H Red Blood Count 4.69 M/UL (4.20-5.40) Hemoglobin 12.6 G/DL (12.0-16.0) Hematocrit 41.1 % (37.0-47.0) Mean Corpuscular Volume 88 FL (80-99) Mean Corpuscular Hemoglobin 27.0 PG (27.0-31.0) Mean Corpuscular Hemoglobin Concent 30.7 G/DL (32.0-36.0) L Red Cell Distribution Width 13.5 % (11.6-14.8) Platelet Count 278 K/UL (150-450) Mean Platelet Volume 7.9 FL (6.5-10.1) Neutrophils (%) (Auto) 80.7 % (45.0-75.0) H Lymphocytes (%) (Auto) 11.1 % (20.0-45.0) L Monocytes (%) (Auto) 4.9 % (1.0-10.0) Eosinophils (%) (Auto) 2.9 % (0.0-3.0) Basophils (%) (Auto) 0.4 % (0.0-2.0) Sodium Level 135 MMOL/L (136-145) L Potassium Level 3.4 MMOL/L (3.5-5.1) L Chloride Level 98 MMOL/L (98-107) Carbon Dioxide Level 28 MMOL/L (21-32) Anion Gap 9 mmol/L (5-15) Blood Urea Nitrogen 2 mg/dL (7-18) L Creatinine 0.9 MG/DL (0.55-1.30) Estimat Glomerular Filtration Rate > 60 mL/min (>60) Glucose Level 90 MG/DL (74-106) Calcium Level 8.5 MG/DL (8.5-10.1) Total Bilirubin 1.0 MG/DL (0.2-1.0) Aspartate Amino Transf (AST/SGOT) 21 U/L (15-37) Alanine Aminotransferase (ALT/SGPT) 19 U/L (12-78) Alkaline Phosphatase 52 U/L (46-116) Total Protein 7.1 G/DL (6.4-8.2) Albumin 3.3 G/DL (3.4-5.0) L Globulin 3.8 g/dL Albumin/Globulin Ratio 0.9 (1.0-2.7) L Plan Additional Comments one time temperature spike. will observe, anticipate am discharge. Dalton Quinn MD Nov 24, 2019 15:12
[2019-11-24 16:00] VITALS: BP 93/62
--- NOTE | 2019-11-24 19:05 | NUR ---
HAND-OFF: Report given to Citlaly MENDES. Patient is in stable condition.
[2019-11-24 20:00] VITALS: BP 100/58
--- NOTE | 2019-11-24 20:10 | NUR ---
nurse's notes: received patient awake, alert and oriented; no complaints of pain or any other distress; encouraged to use IS and increase water intake due to fevers during the day; education given too on pain management; plan of care discussed with patient; will continue to monitor.
[2019-11-25] VITALS: BP 109/62
[2019-11-25] MEDS: Potassium Chloride 20 MEQ in Dextrose 5%/Lactated Ringer's 1,000 ML IV SCH (02:01)
[2019-11-25 04:00] VITALS: BP 96/61
[2019-11-25 06:14] LABS: BASOPHILS % (AUTO) 0.8 % (0.0-2.0); EOSINOPHILS % (AUTO) 3.8 % (0.0-3.0); HEMATOCRIT 36.6 % (37.0-47.0); HEMOGLOBIN 11.4 G/DL (12.0-16.0); LYMPHOCYTES % (AUTO) 12.2 % (20.0-45.0); MEAN CORPUSCULAR VOLUME 87 FL (80-99); MONOCYTES % (AUTO) 5.5 % (1.0-10.0); NEUTROPHILS % (AUTO) 77.7 % (45.0-75.0); PLATELET COUNT 249 K/UL (150-450); RED BLOOD COUNT 4.21 M/UL (4.20-5.40); RED CELL DISTRIBUTION WIDTH 13.7 % (11.6-14.8); WHITE BLOOD COUNT 13.3 K/UL (4.8-10.8)
--- NOTE | 2019-11-25 06:33 | NUR ---
nurse's notes: c/o of vaginal itching and rashes; no rashes found; labia appears to be swollen; advised patient to refrain from using toilet paper and to use soft wipes instead; wash area with warm water and keep area dry; clean towels given; offered benadryl but patient declined; low grade temp noted at the start of shift; afebrile now; surgical site on the right groin remains free of infection; tegaderm intact; pain managed well with ordered medication with good results.
[2019-11-25 06:41] LABS: ANION GAP 6 mmol/L (5-15); BLOOD UREA NITROGEN 3 mg/dL (7-18); CALCIUM 8.2 MG/DL (8.5-10.1); CARBON DIOXIDE 29 MMOL/L (21-32); CHLORIDE 103 MMOL/L (98-107); CREATININE 0.9 MG/DL (0.55-1.30); POTASSIUM 3.8 MMOL/L (3.5-5.1); SODIUM 137 MMOL/L (136-145)
[2019-11-25 08:00] VITALS: BP 100/60
[2019-11-25] MEDS: Augmentin 875mg Tab ORAL SCH (09:10)
[2019-11-25] MEDS: Docusate 100mg cap ORAL SCH (09:10)
--- NOTE | 2019-11-25 10:10 | Pulmonology Progress Note ---
Subjective Allergies: Coded Allergies: No Known Allergies (Unverified , 11/21/19) Subjective low grade fever this am, currently afebrile leuk trending down pain controlled with oral analgesics denies n/v/ had BM rash resolved clinically stable and with significant improvemnet Objective Last 24 Hour Vital Signs Date Time Temp Pulse Resp B/P (MAP) Pulse Ox O2 Delivery O2 Flow Rate FiO2 11/25/19 04:00 98.5 85 19 96/61 (73) 99 11/25/19 00:00 100.4 93 19 109/62 (78) 97 11/24/19 21:00 Room Air 11/24/19 20:00 100.0 96 19 100/58 (72) 100 11/24/19 16:00 99.2 95 16 93/62 (72) 98 11/24/19 12:00 99.9 86 16 98/61 (73) 97 Intake and Output 11/24/19 11/25/19 19:00 07:00 Intake Total 1900 ml 1240 ml Balance 1900 ml 1240 ml Intake Oral 800 ml 240 ml IV Total 1100 ml 1000 ml # Voids 3 3 Objective General Appearance: WD/WN, no apparent distress Lines, tubes and drains: peripheral HEENT: normocephalic, atraumatic, anicteric, mucous membranes moist, PERRL Neck: non-tender, normal alignment, supple Respiratory/Chest: lungs clear, normal breath sounds, no respiratory distress, no accessory muscle use Cardiovascular/Chest: normal rate Abdomen: normal bowel sounds, soft , nontender Extremities: normal range of motion, non-tender, no calf tenderness, normal capillary refill, no edema Neurologic: alert, oriented x 3, responsive Musculoskeletal: normal muscle bulk SKIN: maculopapular rash upper chest and upper back Laboratory Tests 11/25/19 05:30: White Blood Count 13.3H, Red Blood Count 4.21, Hemoglobin 11.4L, Hematocrit 36.6L, Mean Corpuscular Volume 87, Mean Corpuscular Hemoglobin 27.0, Mean Corpuscular Hemoglobin Concent 31.1L, Red Cell Distribution Width 13.7, Platelet Count 249, Mean Platelet Volume 7.7, Neutrophils (%) (Auto) 77.7H, Lymphocytes (%) (Auto) 12.2L, Monocytes (%) (Auto) 5.5, Eosinophils (%) (Auto) 3.8H, Basophils (%) (Auto) 0.8, Sodium Level 137, Potassium Level 3.8, Chloride Level 103, Carbon Dioxide Level 29, Anion Gap 6, Blood Urea Nitrogen 3L, Creatinine 0.9, Estimat Glomerular Filtration Rate > 60, Glucose Level 104, Calcium Level 8.2L Current Medications Medications (Trade) Dose Ordered Sig/Albert Route PRN Reason Start Time Stop Time Status Last Admin Dose Admin Acetaminophen (Tylenol) 650 mg Q8HR PRN ORAL FEVER 11/24/19 08:30 12/24/19 08:29 11/25/19 09:11 Amoxicillin/ Clavulanate Potassium (Augmentin) 875 mg EVERY 12 HOURS ORAL 11/24/19 10:00 12/01/19 09:59 11/25/19 09:10 Bisacodyl (Dulcolax) 5 mg DAILYPRN PRN ORAL Constipation 11/22/19 16:30 02/20/20 16:29 11/23/19 16:59 Bisacodyl (Dulcolax) 10 mg DAILYPRN PRN RECTAL Constipation 11/22/19 16:30 02/20/20 16:29 Diphenhydramine HCl (Benadryl) 25 mg Q3H PRN IVP Itching 11/22/19 10:00 12/22/19 09:59 11/23/19 06:31 Docusate Sodium (Colace) 100 mg TWICE A DAY ORAL 11/22/19 18:00 12/22/19 17:59 11/25/19 09:10 Lactulose (Cephulac) 30 gm TIDPRN PRN ORAL CONSTIPATION 11/23/19 15:52 12/23/19 15:51 Morphine Sulfate (Morphine Sulfate) 4 mg Q4H PRN IVP breakthrough pain 11/23/19 09:45 11/30/19 09:44 11/23/19 17:40 Ondansetron HCl (Zofran) 4 mg Q6H PRN IVP Nausea & Vomiting 11/21/19 23:15 12/21/19 23:14 Oxycodone/ Acetaminophen (Percocet 10/325) 1 tab Q3H PRN ORAL severe pain 11/23/19 09:45 11/30/19 09:44 11/24/19 22:42 Potassium Chloride 20 meq/ Dextrose/Lactated Ringer's 1,010 ml @ 100 mls/hr Q10H6M IV 11/23/19 12:00 12/23/19 11:59 11/25/19 02:01 Assessment/Plan Assessment/Plan ASSESSMENT Postoperative pain s/p uterine artery embolization Uterine fibroids Leukocytosis Pruritic rash Anemia Bradycardia - asymptomatic. resolved PLAN OF CARE [facility] floor IVF initially empiric abx -Cefazolin, abx stopped due to rash -possible adverse effect mild leukocytosis resolved ,this am WBC 14 and fever 101.2 continue Augmentin antipyretic prn IS the bedside and encourage to use OOB as tolerated pain management, tolerates po Dilaudid prior dc due to possible adverse effect due to rash no further rash a/emetic prn Benadryl added for pruritis prn advance diet to soft , tolerates bowel regimen, had BM voiding w/out difficulties supportive care surgeon cleared for dc dc today went over medications upon dc ( has from dr Quinn) dc instruction provided case discussed and evaluated by supervising physician Nelsy Mulligan NP Nov 25, 2019 10:10
--- NOTE | 2019-11-25 12:30 | NUR ---
Patient was discharged safely accompanied by friend and private vehicle. I have discussed the discharge instructions with the patient and gave her educational printed materials. she verbalized understanding for all medications and her disease process. I removed the patient's IV access and took the patient down in a wheelchair to the private car with her friend. Patient stable.
--- NOTE | 2019-11-25 15:30 | NUR ---
*-* INSURANCE *-* ALL CLINICALS HAVE BEEN FAXED TO: [facility] AUTH#[id number] [phone] F:[phone]
--- NOTE | 2019-11-26 13:04 | NUR ---
*-* NO DISCHARGE SUMMARY IN THE SYSTEM UNABLE TO FAX TO [employer] [place] *-*
--- NOTE | 2019-11-26 15:03 | Discharge Summary ---
Discharge Summary Discharge Summary _ DATE OF ADMISSION: 11/21/2019 DATE OF DISCHARGE: 11/25/2019 DISCHARGED BY: Dr. Andrea REASON FOR ADMISSION: 34 years old female with past medical history of uterine fibroids, status post uterine artery embolization, presented with persistent abdominal pain , radiating to her back and rated 8 out of 10 on a scale 1-10. Patient was sent for pain control. No fever or chills. No nausea and vomiting. Urinalysis revealed no evidence of urinary tract infection. Stable labs. In emergency department patient received analgesic, antiemetic, started on IV fluids and admitted for further management. CONSULTANTS: surgery Dr Quinn [facility] COURSE: Patient admitted to medical surgical floor. Patient was provided with IV fluids and empiric antibiotics. Patient initially started on clear liquid diet. Bowel regimen instituted. Pain management was addressed. Mobilization out of bed was encouraged. Incentive spirometry was encouraged while in the bed. Patient developed pruritic rash. Subsequently antibiotic was stopped for possible side effect. Benadryl was added to medication regimen. Patient continued to have rash and subsequently Dilaudid was stopped , and analgesic was changed to morphine. Rash cleared . No further complaint of pruritic rash. Patient was on oral antibiotics . Hemoglobin and hematocrit remained stable. In fact hemoglobin improved from admission to 11.4 hematocrit 36.6 Fevers resolved, mild leukocytosis, trending down . Pain controlled with oral analgesic. Patient voided without difficulties. Diet was advanced to regular as tolerated , and patient was able tolerate diet. Surgeon cleared patient for discharge. Discharge instruction provided. Patient was instructed to continue medications given to her at outpatient surgery center. Patient to complete antibiotic. Patient had analgesic and antiemetic as well. Patient clinically stabilized and was ready for discharge FINAL DIAGNOSES: Postoperative pain Status post uterine artery embolization Uterine fibroid Leukocytosis Pruritic rash Anemia DISCHARGE MEDICATIONS: See Medication Reconciliation list. DISCHARGE INSTRUCTIONS: Patient was discharged home. Outpatient follow-up with a surgeon as advised Nelsy Mulligan NP Nov 26, 2019 15:03
--- NOTE | 2019-11-27 12:05 | NUR ---
*-* INSURANCE *-* DISCHARGE SUMMARY HAS BEEN FAXED: [facility] AUTH#[id number] P:[phone] F:[phone]
== END 2019-11-25 12:30 | disposition home or self-care (01) | DRG 948 ==
LOC: EMR 19:15 → EDBEDREQ 19:35 → 3E 19:50 → EDBEDREQ 21:14
DX: G89.18 Other acute postprocedural pain (principal); D25.9 Leiomyoma of uterus, unspecified; D64.9 Anemia, unspecified; L29.9 Pruritus, unspecified; R21 Rash and other nonspecific skin eruption; R00.1 Bradycardia, unspecified
CPT/HCPCS: 36415; 80048; 80053; 81003; 81025; 82962; 83690; 85025; 96361; 96374; 96375; 99285; J7030; J8499